=== PATIENT | male | born 1945 | race Caucasian/White ===

== ENCOUNTER → 2022-07-23 | Outpatient (CLI) | payer MEDICARE, OTHER ==
--- NOTE | 2022-07-23 15:01 | Diagnostic Imaging Report ---
INDICATION: Non-small cell lung carcinoma, initial staging. TECHNIQUE: The serum blood glucose level at the time of injection was 123 mg/dL. The patient was administered 14.4 mCi of F-18 FDG intravenously in the left antecubital location and PET imaging was performed from the top of the skull to the mid thighs. A noncontrast CT was also performed for attenuation correction and anatomic correlation. COMPARISON: No prior studies are available for comparison. FINDINGS: There is symmetric activity throughout the brain. The soft tissues of the neck are unremarkable. There is a hypermetabolic lesion involving the right posterior 3rd rib with an SUV max of 9.4. No other osseous lesions are identified. There is a hypermetabolic mass extending from the left hilum into the left lower lobe demonstrating an SUV max of 11.9. This does show some central low density, consistent with necrosis. There are small subpleural nodules in the right lower lobe which are indeterminate. No other pulmonary parenchymal abnormalities are seen. There is a moderate left effusion. There is a small area of increased metabolism involving the left adrenal gland with an SUV max of 4.9, suspicious for a metastatic lesion. Physiologic activity throughout the GI and tracts of the abdomen and pelvis is noted. No other suspicious areas of hypermetabolism are seen. IMPRESSION: Large mass in the left lower lobe extending from the left hilum with central necrosis, consistent with primary lung malignancy. There is a moderate left effusion as well. Note is made of a hypermetabolic lesion involving the right posterior 3rd rib, consistent with a metastatic lesion. There are also findings suggestive of a metastatic lesion involving the left adrenal gland. Dictated by: Dictated on workstation # [id number]
== END ==
LOC: RAD 08:15
PROVIDERS: ATTEND Internal Medicine Hematology & Oncology
DX: C34.90 Malignant neoplasm of unspecified part of unspecified bronchus or lung (principal); R91.8 Other nonspecific abnormal finding of lung field; J90 Pleural effusion, not elsewhere classified
CPT/HCPCS: 78815; A9552

== ENCOUNTER → 2023-01-21 | Outpatient (CLI) | payer MEDICARE ==
[~2023-01-21] MED LIST: CATHETER FLUSH 10 ML SYR IVP PRN
--- NOTE | 2023-01-22 14:21 | Diagnostic Imaging Report ---
INDICATION: Non-small cell lung carcinoma, subsequent staging. Serum blood glucose level at time of injection 97 mg/dL. Patient was administered 10.4 mCi F-18 FDG intravenously in the left antecubital location and PET imaging was performed from the top of skull to mid thighs. Noncontrast CT was also performed for attenuation correction and anatomic correlation. Correlation is made with prior PET/CT study from 07/23/2022. There is symmetric activity throughout the brain. Soft tissues of the neck are unremarkable. There has been a reduction in left-sided pleural effusion since prior PET/CT study. There continues to be a mass in the left lower lobe extending from the left hilum posteriorly demonstrating marked hypermetabolism with an SUV max approximately 25. No other pulmonary parenchymal regions of hypermetabolism are identified. Previously noted hypermetabolic focus involving the right posterior 3rd rib is no longer hypermetabolic. In addition, there is no abnormal hypermetabolism involving the left adrenal gland on today's study. Abdomen and pelvis demonstrate physiologic activity throughout the gastrointestinal and genitourinary tract. No suspicious areas of hypermetabolism are identified. IMPRESSION: Hypermetabolic left lower lobe lung mass consistent with primary lung malignancy. Previously noted probable metastatic foci involving the right posterior 3rd rib and left adrenal gland are no longer hypermetabolic. No new hypermetabolic foci are detected on today's study. Dictated by: Dictated on workstation # [id number]
== END ==
LOC: RAD 09:14
PROVIDERS: ATTEND Internal Medicine Hematology & Oncology
DX: C34.32 Malignant neoplasm of lower lobe, left bronchus or lung (principal)
CPT/HCPCS: 78815; 82947; A9552

== ENCOUNTER → 2023-08-01 | Outpatient (CLI) | payer MEDICARE ==
[2023-08-01] MEDS: CATHETER FLUSH 10 ML SYR IVP PRN ×2 (10:58→11:00)
--- NOTE | 2023-08-02 11:34 | Diagnostic Imaging Report ---
Indication: Subsequent staging non-small cell lung carcinoma. Serum blood glucose level at the time of injection is 151 mg/dL. Patient was administered 8.6 mCi F-18 FDG intravenously in the left antecubital location and PET imaging was performed from the top of skull to mid thighs. Noncontrast CT was also performed for attenuation correction and anatomic correlation. Comparison is made with prior PET/CT study from 01/21/2023. Symmetric activity throughout the brain is noted. Soft tissues of the neck are unremarkable. A large mass left lower lobe adjacent to left hilum is again noted appears larger on today's study. SUV max approximately 23 compared with 25 on prior exam. There is some lower level activity in the left upper lobe posteriorly with SUV max of approximately 6.6. It is uncertain if this is inflammatory or neoplastic. Infiltrate left upper lobe is new. The dominant left lower lobe mass is now cavitary and now contains central gas and fluid. The right lung is unremarkable. Mediastinum is unremarkable. Abdomen and pelvis demonstrate physiologic activity throughout the gastrointestinal and genitourinary tract. No suspicious areas of hypermetabolism are identified. There is some generalized mild uptake throughout the axial and appendicular skeleton which may be post-therapeutic. IMPRESSION: Enlarging left lower lobe mass which now shows some central cavitation containing gas and fluid. There are some new infiltrate in the left upper lobe posteriorly which show some lower lobe level of metabolic activity. This could represent post obstructive pneumonia versus lymphangitic spread of tumor. No other new foci of hypermetabolism are identified. Dictated by: Dictated on workstation # [id number]
== END ==
LOC: RAD 10:25
PROVIDERS: ATTEND Internal Medicine Hematology & Oncology
DX: C34.90 Malignant neoplasm of unspecified part of unspecified bronchus or lung (principal); A15.0 Tuberculosis of lung; R91.8 Other nonspecific abnormal finding of lung field
CPT/HCPCS: 78815; 82947; A9552